=== PATIENT | female | born 1990 | race Caucasian/White ===

== ENCOUNTER 2017-10-02 19:08 | Emergency (ER) | payer OTHER, MEDICAID ==
[2017-10-03] MEDS: ONDANSETRON (ODT) 4 MG TAB ODT (00:10)
[2017-10-03] MEDS: HYDROCODONE/APAP (5/325) TAB PO (00:11)
[2017-10-03 00:13] LABS: URINE BLOOD (Dip) POC Trace-lysed (NEGATIVE); URINE GLUCOSE (Dip) POC Negative (NEGATIVE); URINE KETONES (Dip) POC 1+ (NEGATIVE); URINE LEUKOCYTE EST (Dip) POC Negative (NEGATIVE); URINE NITRITE (Dip) POC Negative (NEGATIVE); URINE TOTAL PROTEIN POC 1+ (NEGATIVE)
[2017-10-03 00:13] LABS: URINE PH (Dip) POC 6.5 (5.0-8.5)
[2017-10-03] MEDS: KETOROLAC 60 MG INJ IM (00:17)
[2017-10-03 00:41] LABS: ADD MAN DIFF? NO
[2017-10-03 00:43] LABS: WHITE BLOOD COUNT 7.1 10^3/ul (4.8-10.8)
[2017-10-03 00:43] LABS: BASOPHIL # 0.1 10^3/ul (0.0-0.1); BASOPHILS % 0.7 % (0.0-2.0); EOSINOPHILS # 0.2 10^3/ul (0.0-0.5); EOSINOPHILS % 3.2 % (0.0-7.0); HEMATOCRIT 40.1 % (37.0-47.0); HEMOGLOBIN 13.6 g/dl (12.0-16.0); LYMPHOCYTES # 2.6 10^3/ul (0.8-2.9); MEAN CORPUSCULAR HEMOGLOBIN 30.1 pg (29.0-33.0); MEAN CORPUSCULAR HGB CONC 33.9 g/dl (32.0-37.0); MEAN CORPUSCULAR VOLUME 88.7 fl (82.0-101.0); MONOCYTE # 0.6 10^3/ul (0.3-0.9); MONOCYTES % 8.8 % (0.0-11.0); NEUTROPHIL # 3.5 10^3/ul (1.6-7.5); NEUTROPHILS % 49.9 % (39.0-77.0); PLATELET COUNT 250 10^3/UL (140-415); RED BLOOD COUNT 4.52 10^6/ul (4.20-5.40); RED CELL DISTRIBUTION WIDTH 12.3 % (11.5-14.5)
[2017-10-03 00:44] LABS: ADD UMIC YES; UR ASCORBIC ACID NEGATIVE (NEGATIVE); UR BACTERIA FEW /HPF (NONE SEEN); UR BILIRUBIN (Dip) NEGATIVE (NEGATIVE); UR BLOOD (Dip) 1+ mg/dL (NEGATIVE); UR CLARITY CLEAR (CLEAR); UR COLOR YELLOW (YELLOW); UR GLUCOSE (Dip) NEGATIVE (NEGATIVE); UR KETONES (Dip) NEGATIVE (NEGATIVE); UR LEUKOCYTE ESTERASE (Dip) TRACE Leu/ul (NEGATIVE); UR MUCUS FEW /HPF (NONE SEEN); UR NITRITE (Dip) NEGATIVE (NEGATIVE); UR RBC 3 /HPF (0-5); UR SPECIFIC GRAVITY (Dip) 1.033 (1.003-1.030); UR SQUAMOUS EPITHELIAL CELL FEW /HPF (FEW); UR TOTAL PROTEIN (Dip) NEGATIVE (NEGATIVE); UR UROBILINOGEN (Dip) NEGATIVE (NEGATIVE); UR WBC 2 /HPF (0-5)
[2017-10-03 01:02] LABS: ALANINE AMINOTRANSFERASE 34 IU/L (13-69); ALBUMIN/GLOBULIN RATIO 1.31; ALKALINE PHOSPHATASE 64 IU/L (42-121); ANION GAP 22 (8-16); ASPARTATE AMINO TRANSFERASE 20 IU/L (15-46); BILIRUBIN,INDIRECT 0.6 mg/dl (0-1.1); BILIRUBIN,TOTAL 0.6 mg/dl (0.2-1.3); BLOOD UREA NITROGEN 15 mg/dl (7-20); CALCIUM 9.6 mg/dl (8.4-10.2); CARBON DIOXIDE 27 mmol/L (21-31); CHLORIDE 103 mmol/L (97-110); CREATININE 0.61 mg/dl (0.44-1.00); GLUCOSE 102 mg/dl (70-220); LIPASE 82 U/L (23-300); POTASSIUM 3.8 mmol/L (3.5-5.1); SODIUM 148 mmol/L (135-144); TOTAL PROTEIN 8.8 g/dl (6.1-8.1)
== END 2017-10-03 01:58 | disposition home or self-care (01) ==
LOC: FTE 19:08
DX: R10.11 Right upper quadrant pain (principal); R10.13 Epigastric pain; R11.0 Nausea
CPT/HCPCS: 76705; 80053; 81001; 81003; 83690; 85025; 96372; 99285-25

== ENCOUNTER 2017-10-26 06:29 | Day surgery (SDC) | payer OTHER ==
[~2017-10-26 06:29] MED LIST: CEFAZOLIN 2 GM/50 ML (PMX) 50 ML IVPB; SOD CHLORIDE 0.9% 1,000 ML IV
[2017-10-26] MEDS ORDERED: DIPHENHYDRAMINE 50 MG INJ IV (09:00)
[2017-10-26] MEDS ORDERED: METOCLOPRAMIDE 10 MG INJ IV (09:00)
[2017-10-26] MEDS ORDERED: HYDROmorphONE (0.2 MG/ML) 10ML SYG IV ×2 (09:00)
[2017-10-26] MEDS ORDERED: MEPERIDINE 25 MG INJ IV (09:00)
[2017-10-26] MEDS ORDERED: FENTAnyl 50 MCG/ML VIAL (09:24)
[2017-10-26] MEDS: BUPIVACAINE 0.25% (MPF) 30 ML INJ (09:50)
[2017-10-26] MEDS ORDERED: CEFAZOLIN 1 GM INJ (09:53)
[2017-10-26] MEDS ORDERED: SUCCINYLCHOLINE CHLORIDE 100 MG/5 ML SYG IV (09:53)
[2017-10-26] MEDS ORDERED: PROPOFOL 20 ML (09:53)
[2017-10-26] MEDS ORDERED: LIDOCAINE 100 MG SYRINGE (09:53)
[2017-10-26] MEDS ORDERED: ROCURONIUM 50 MG INJ (09:53)
[2017-10-26] MEDS ORDERED: SUGAMMADEX SODIUM 200 MG/2 ML VIAL IV (09:53)
[2017-10-26] MEDS ORDERED: ROPIVACAINE 0.5 % 30 ML VIAL (09:53)
[2017-10-26] MEDS: ONDANSETRON 4 MG INJ IV (10:41)
[2017-10-26] MEDS: FENTAnyl 50 MCG/ML VIAL IV ×2 (10:42→10:48)
[2017-10-26] MEDS: HYDROmorphONE (0.2 MG/ML) 10ML SYG IV ×2 (10:56→11:16)
[2017-10-26] MEDS: HYDROCODONE/APAP (5/325) TAB PO (11:08)
== END 2017-10-26 13:30 | disposition home or self-care (01) ==
LOC: SDS 06:29
DX: K80.10 Calculus of gallbladder with chronic cholecystitis without obstruction (principal)
CPT/HCPCS: 47562; 84703; 88304